=== PATIENT | male | born 1935 | race Caucasian/White ===

== ENCOUNTER 2022-06-15 11:13 | Inpatient (IN) | payer OTHER ==
[~2022-06-15] VITALS: Ht 175.3 cm; Wt 66.9 kg
[~2022-06-15 11:13] MED LIST: HYDACE5 PO
[2022-06-15 11:47] LABS: BASOPHILS ABSOLUTE AUTO 0.04 K/mm3 (0.00-0.23); BASOPHILS PERCENT AUTO 0 % (0-2); EOSINOPHILS ABSOLUTE AUTO 0.04 K/mm3 (0.00-0.68); EOSINOPHILS PERCENT AUTO 0 % (0-6); Hematocrit 44.4 % (37.0-53.0); IMMATURE GRAN ABSOLUTE AUTO 0.03 K/mm3 (0.00-0.10); IMMATURE GRAN PERCENT AUTO 0 % (0-1); LYMPHOCYTES ABSOLUTE AUTO 1.66 K/mm3 (0.84-5.20); LYMPHOCYTES PERCENT AUTO 15 % (21-46); MONOCYTES PERCENT AUTO 6 % (4-13); Mean Corpuscular HGB 30.9 pg (26.0-34.0); Mean Corpuscular HGB Conc 33.8 g/dL (31.5-36.5); Mean Corpuscular Volume 91 fL (80-100); Mean Platelet Volume 12.9 fL (9.1-12.4); NEUTROPHILS PERCENT AUTO 78 % (41-73); Platelet Count 153 K/mm3 (150-400); RDW Coefficient Variation 12.9 % (11.7-14.2); RDW Standard Deviation 43.5 fL (35.1-46.3); Red Blood Cell Count 4.86 M/mm3 (4.30-5.90); White Blood Cell Count 11.07 K/mm3 (4.00-11.30)
[2022-06-15 12:19] LABS: International Normalized Ratio 1.15
[2022-06-15 12:39] LABS: Thyroid Stimulating Hormone 1.27 uIU/mL (0.360-4.800)
[2022-06-15 13:04] LABS: Alanine Aminotransfer (ALT/SGP 31 U/L (12-78); Albumin, Blood 4.1 g/dL (3.4-5.0); Albumin/Globulin Ratio 1.1 (0.8-1.8); Alk Phos 80 U/L (50-136); Anion Gap 4 mmol/L (6-16); Aspartate Aminotrans (AST/SGOT 44 U/L (12-37); Bilirubin, Total 0.9 mg/dL (0.1-1.0); Blood Urea Nitrogen 23 mg/dL (8-24); Bun/Creatinine Ratio 19.8 (12.0-20.0); CO2, Blood 26 mmol/L (21-32); Calcium, Blood 8.9 mg/dL (8.5-10.1); Chloride, Blood 113 mmol/L (98-108); Creatinine, Blood 1.16 mg/dL (0.60-1.20); Ethanol (Alcohol), Blood, Med <3 mg/dL; Globulin, Blood 3.8 g/dL (2.2-4.0); Glomerular Filtration Rate 62 (60-); Glucose, Blood 106 mg/dL (70-99); Potassium, Blood 4.1 mmol/L (3.5-5.5); Sodium, Blood 143 mmol/L (136-145); Total Protein, Blood 7.9 g/dL (6.4-8.2)
--- NOTE | 2022-06-15 19:05 | NUR ---
LATE ENTRY/ER ADMIT 1715: RECEIVED REPORT FROM GEOTHERMAL INSTALLER 1740: RECEIVED PT FROM ER VIA [facility]. PLACED PT IN BED, MADE COMFORTABLE, ORIENTED FAMILY TO ROOM & UNIT ROUTINE. PT IS UNRESPONSIVE, WILL OPEN EYES WHEN NAME IS CALLED BUT DOES NOT RESPOND. IS YAWNING FREQUENTLY. APPEARS TO BE RESTING WITH EYES CLOSED, RESP EVEN & UNLABORED. DTR FROM [place] AT BEDSIDE.
[2022-06-16 06:22] LABS: Anion Gap 6 mmol/L (6-16); Blood Urea Nitrogen 20 mg/dL (8-24); CHOL/HDL RATIO 2.8; CO2, Blood 23 mmol/L (21-32); Calcium, Blood 8.3 mg/dL (8.5-10.1); Chloride, Blood 118 mmol/L (98-108); Cholesterol 134 mg/dL (50-200); Glucose, Blood 84 mg/dL (70-99); HDL Cholesterol 48 mg/dL (>39); LDL/HDL RATIO 1.4; Low Density Lipoprotein Chol 68 mg/dL (0-110); Potassium, Blood 3.9 mmol/L (3.5-5.5); Sodium, Blood 147 mmol/L (136-145); Triglycerides 90 mg/dL (30-160); Very Low Density Lipoprot Chol 18 mg/dL (6-32)
[2022-06-16 06:23] LABS: Bun/Creatinine Ratio 18.3 (12.0-20.0); Creatinine, Blood 1.09 mg/dL (0.60-1.20); Glomerular Filtration Rate 67 (60-)
--- NOTE | 2022-06-16 06:38 | NUR ---
SHIFT SUMMARY PT SLEEPING DURING BEDSIDE ROUNDING - PT REPORT PT HAS BEEN NON VERBAL SINCE ADMISSION - PT WOKE UP WHILE SON AND FAMILY WERE IN ROOM - PT HAVING PROBLEMS TRACKING AND FOLLOWING DIRECTION- PT REPEATED IS SENTENCES REPEATITLY- PT SET OFF BED ALARM AND STOOD AT BEDSIDE- PT STEADY ON FEET- PT UNABLE TO FOLLOW DIRECTION, ATTEMPTED TO HAVE PT URINATE IN URINAL- PT UNABLE TO FOLLOW DIRECTION- IV INFUSING WITHOUT PROBLEMS BED LOW POSITION, CALL LIGHT WITHIN REACH, BED ALARM IN PLACE
--- NOTE | 2022-06-16 12:02 | NUR ---
"Spiritual Care | Pt. request (Family Request) Pt. is awake and in bed. Family are present and welcome my visit. Pt. is known to this microbiology technician from [email or web address] and [employer]. Pt. displays evidence of difficulty processing thoughts and is favoring one side as his point of focus. Thought this microbiology technician is known to this Pt. Pt. jackson a difficult time identifying me. Rapport is established with the family who requested that this microbiology technician contact the Pts. spiritism. Family verbalized that they are looking at home hospice for Pt. treatment. Prayed with Pt. and family. Family verbalized gratitude for the spiritual care visit. Family verbalizes an openness to having visitors come see the Pt. as long as they don't stay long. This microbiology technician will contact the Pts. spiritism."
--- NOTE | 2022-06-16 16:04 | NUR ---
Spiritual Care Coordination Assisted Pts. Elder from gn[facility] to connect with Pt. Pt. displayed more active engagement, though still spoke with some word salad. Family expressed gratitude for the Communication and coordination.
--- NOTE | 2022-06-16 17:01 | NUR ---
PT IS ALERT NOT ABLE TO FOLLOW DIRECTIONS WELL ALTHOUGH SEEEMS TO HAVE IMPROVED SOME COMPARED TO THIS AM. PT MOVES ALL EXTREMITIES WELL. THIS AFTERNOON THE PT WAS UP WITH ASSIST TO THE BATHROOM WITH PERSISTANT DIRECTION. PT APPEARS TO BE BREATHING EASILY ON RA AT THIS TIME. THE PT HAD AN EEG AT THE BEDSIDE THIS AFTERNOON AND COOPERATED. THE PTS FAMILY IS AT THE BEDSIDE T/O THE DAY. SPEECH THERAPY WORKED WITH THE PT. CALL LIGHT IN REACH, BED ALARM ON
--- NOTE | 2022-06-16 22:05 | NUR ---
HOSPITALIST NOTIFICATION TELE RUN 10X V TACK. DIOR ORDERED AND MAG LABS. PATIENT ASYMPTOMATIC.
[2022-06-17 05:41] LABS: BASOPHILS ABSOLUTE AUTO 0.04 K/mm3 (0.00-0.23); BASOPHILS PERCENT AUTO 1 % (0-2); EOSINOPHILS PERCENT AUTO 1 % (0-6); Hematocrit 37.3 % (37.0-53.0); Hemoglobin 12.6 g/dL (13.5-17.5); IMMATURE GRAN ABSOLUTE AUTO 0.02 K/mm3 (0.00-0.10); IMMATURE GRAN PERCENT AUTO 0 % (0-1); LYMPHOCYTES ABSOLUTE AUTO 2.06 K/mm3 (0.84-5.20); LYMPHOCYTES PERCENT AUTO 24 % (21-46); MONOCYTES ABSOLUTE AUTO 0.74 K/mm3 (0.16-1.47); MONOCYTES PERCENT AUTO 9 % (4-13); Mean Corpuscular HGB 31.3 pg (26.0-34.0); Mean Corpuscular HGB Conc 33.8 g/dL (31.5-36.5); Mean Corpuscular Volume 93 fL (80-100); NEUTROPHILS ABSOLUTE AUTO 5.64 K/mm3 (1.96-9.15); NEUTROPHILS PERCENT AUTO 66 % (41-73); Platelet Count 122 K/mm3 (150-400); RDW Coefficient Variation 12.8 % (11.7-14.2); RDW Standard Deviation 43.4 fL (35.1-46.3); Red Blood Cell Count 4.03 M/mm3 (4.30-5.90)
--- NOTE | 2022-06-17 06:00 | NUR ---
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 He presented with mental confusion and right-sided weakness. His brain MRI reported findings consistent with subacute infarct involving the area of the anterior left frontal lobe, left temporal lobe, posterior left frontal and parietal lobes and left basal ganglia. [facility] Stroke Service was therefore contacted and recommendation for the patient to have EEG d/t increased risks for seizures. Confused and cooperative during shift. Episodes of confusion with multiple bed exits alarm triggers. Deficient communication and word-salad apparent. Right -sided neglect with ability to ambulate x1 staff assist. Am Labs drawn and results reviewed.
[2022-06-17 06:23] LABS: Bun/Creatinine Ratio 16.1 (12.0-20.0); Calcium, Blood 8.1 mg/dL (8.5-10.1); Creatinine, Blood 0.99 mg/dL (0.60-1.20); Potassium, Blood 3.8 mmol/L (3.5-5.5)
--- NOTE | 2022-06-17 14:44 | NUR ---
Spiritual Care Visit. Pt. is awake in bed and welcomes my visit. Family members are present. Pt. displays evidence of confusion and word salad. Pt. also displays some frustration when responding. Because of the Pts. condition the visit is kept brief. Prayed with Pt. DIL verbalized that the plan is to have Pt. transfer to [facility] on Tuesday, ANAND also verbalized gratitude for the spiritual care visit. Will remain available to Pt. and family.
--- NOTE | 2022-06-17 19:24 | NUR ---
SHIFT SUMMARY: PT A&O X2. HAS BEEN VERY PLEASANT AND COOPERATIVE WITH ALL CARE. IV WAS LEAKING WHEN WALKING INTO ROOM THIS AM. NEW IV PLACED IN LEFT WRIST. FAMILY IN ROOM THROUGHOUT WHOLE SHIFT. FAMILY TALKING SKILLED VS. HOSPICE CARE AT FACILITY. POSSIBLE D/C TOMORROW. PT CONTINUES TO HAVE WORD SALAD BUT APPEARS TO BE BETTER SINCE THIS AM. NO C/O PAIN OR N/V. CALL LIGHT IN REACH. BED IN LOWEST POSITION. REPORT GIVEN TO ONCOMING NURSE.
[2022-06-18 05:57] LABS: SARS-Cov-2 (COVID-19) PCR, MMC NEGATIVE (NEGATIVE)
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
--- NOTE | 2022-06-18 13:41 | NUR ---
PT TRANSFERRED TO ROOM 348 AT 1330. REPORT GIVEN TO AALIYAH CELESTE. FAMILY NOTIFIED. ALL BELONGINGS SENT WITH PT.
--- NOTE | 2022-06-18 19:46 | NUR ---
SHIFT SUMMARY: PT TRASNFERED FROM 326 TO 348 AFTER LUNCH. PT A&O X2, PLEASANT, COOPERATIVE, AND IMPULSIVE. PT FAMILY PRESENT DURING TRANSFER AND AT BEDSIDE THROUGHOUT THE SHIFT. PT REQUIRES ASSISTANCE WITH MEALS, SNACKS, AND ADL'S. PT HAS BED ALARM ARMED, HIGH FALL RISK. PT ON PUREE AND THIN LIQUIDS. PT CONTINENT OF URINE AND STOOL.PT IN BED WITH CALL LIGHT WITHIN REACH AND FAMILY AT BEDSIDE.
--- NOTE | 2022-06-19 06:42 | NUR ---
PT FORGETFUL, IMPULSIVE BUT REDIRECTABLE. TRANSFERS WITH UNSTEADY GAIT TO TOILET. BED ALARM ON, DOES NOT CALL APPROPRIATELY. VSS, CONTINENT OF BOWEL AND BLADDER, NO SIGNIFICANT CHANGES LAST NIGHT.
--- NOTE | 2022-06-19 09:00 | NUR ---
pt sitting up in bed with son at bedside, pt is a/oX2, cooperative with care, but needs a lot of direction, lungs are clear t/o, on r/a, resp even and unlabored, no cough noted, hrr, paced, no edema noted, ppp+2, cap refill <3sec, vs stable, afebrile, btx4, abd flat soft nontender, voids without diff, skin c/w/d, maew, pupils a bit sluggish, needs assist to eat, can feed self but puts hands in food if left alone, meds crushed in applesauce, speech following, call light in reach.
--- NOTE | 2022-06-19 18:13 | NUR ---
pt had an uneventful day, ambulating around the room and out in the chaves with his son, he is redirectable, no acute changes this shift. call light in reach.
--- NOTE | 2022-06-20 03:58 | NUR ---
PT WAS PLEASANT, COOPERATIVE WITH CARE WHILE FAMILY WAS HERE. PT HAS BEEN AOX1-2 WITH INAPPROPRIATE RESPONSES AND VERY CONFUSED THOUGHT PROCESS THROUGHOUT SHIFT. FAMILY LEFT AT ABOUT 2100. AFTER THIS POINT, PT WAS IMPULSIVELY OOB OFTEN, UNSTEADY ON FEET, EXCEEDINGLY DIFFICULT TO REDIRECT, AND INCREASINGLY AGITATED. BECAME COMBATIVE WITH STAFF WHEN ATTEMPTED TO GIVE ORAL PRN ZYPREXA. RECEIVED ORDER FOR AND ADMINISTERED ONE TIME DOSE OF IM ZYPREXA AFTER WHICH POINT PT HAS BEEN ABLE TO REST AND RELAX THROUGH REST OF SHIFT. CALL LIGHT LEFT WITHIN REACH.
--- NOTE | 2022-06-20 18:59 | NUR ---
SHIFT SUMMARY- PT IS ALERT. CONFUSED. WORDS USED WHEN TALKING DO NOT CORELATE WITH SITUATION. PT DOES NOT SEEM TO BE UPSET WITH STAFF OR FAMILY FOR NOT UNDERSTANDING HIM. CALM, PLEASANT, COOPERATIVE. PT FAMILY REMAINED WITH HIM MOST OF THE DAY. UP TO BATHROOM WITH 1 PERSON ASSIST. GAIT SOMEWHAT UNSTEADY. BED IS IN THE LOWEST POSITION WITH BED ALARM ON AND CALL LIGHT IN REACH
--- NOTE | 2022-06-21 03:49 | NUR ---
SHIFT UNREMARKABLE. PT TOOK 2100 MEDICATION WITHOUT DIFFICULTY WITH ASSISTANCE OF PRESENT FAMILY AND HAS SLEPT THROUGH MOST OF REMAINDER OF SHIFT. REMAINS VERY CONFUSED, ORIENTED EXCLUSVELY TO SELF. NOT ABLE TO CALL APPOPRIATELY. VERY DIFFICULT TO REORIENT. VERY [place]. THUS FAR COOPERATIVE WITH CARE. CALL LIGHT IS LEFT WITHIN REACH.
--- NOTE | 2022-06-21 16:09 | NUR ---
SHIFT SUMMARY PT EXTREMELY CONFUSED. PLEASANT IN ROOM. UNABLE TO FOLLOW VERBAL DIRECTION. CAN FOLLOW GESTURES WELL. SPEECH THERAPY IN TO SEE THE PT, FINGER FOODS RECCOMMENDED AND MEDS CRUSHED. PT HAVING DIFFICULTY REMEMBERING TO FEED HIMSELF. FED FOR LUNCHTIME. 1 LITER OF NS GIVEN THIS AM FOR HYPOTENSION. BP THIS AFTERNOON 100/68. PT AMBULATING IN ROOM WITH 1P ASSIST FOR SAFETY. NO OTHER ACUTE CHANGES IN ASSESSMENT AT THIS TIME. VS REVIEWED. PT UP IN CHAIR. CALL LIGHT IN REACH. ENCOURAGING PO INTAKE & FLUIDS.
--- NOTE | 2022-06-22 06:28 | NUR ---
PT SLEPT AFTER 2100 AND NIGHT MEDS GIVEN. AWOKE TO USE BATHROOM, DID NOT CALL, BED ALARM ON. PT HAD LOOSE STOOL.
--- NOTE | 2022-06-22 08:51 | NUR ---
TACHYCARDIA PT HR THIS AM IN THE 130-[address] LAURENT NOTIFIED. TELE ORDER PLACED. PT UNABLE TO ANSWER IF HE IS HAVING CHEST PAIN. OTHER VITALS REVIEWED.
--- NOTE | 2022-06-22 09:31 | NUR ---
PHYSICIAN CONTACT. TACHYCARDIA PT UP IN HALLWAY, REFUSING TO GO BACK TO HIS ROOM. TELE IN PLACE. RUNNING SINUS WITH A RATE IN THE 160S PER DIRECTOR LOAN. DR. LAURENT PT CURRENTLY STANDING LOOKING OUT THE WINDOW, UNWILLING TO COME BACK TO HIS ROOM.
--- NOTE | 2022-06-22 11:31 | NUR ---
AFIB eyesFinder NOTIFIED THIS RN THAT PT IS NOW IN AFIB WITH A RATE IN THE 160S. DR. LAURENT NOTIFIED. EKG ORDERED.
--- NOTE | 2022-06-22 16:46 | NUR ---
SHIFT SUMMARY PT VERY CONFUSED T/O SHIFT. PT DID GET MEDICATED ONCE WITH ZYPREXA WHEN HE WAS AGITATED AND DID NOT WANT TO SIT DOWN OR RETURN TO HIS ROOM WHEN IN THE HALLWAY. SECURITY WAS CALLED TO HELP ESCORT PT BACK TO HIS ROOM. PT HAS BEEN COOPERATIVE AND PLEASANT SINCE. TACHYCARDIC THIS AM, TELE ORDERED AND APPLIED. PT ORIGINIALLY RUNNING SINUS TACH IN TE 150-160S. LATER IN THE DAY PT CONVERTED TO AFIB WITH A RATE FROM 70-120 THIS AFTERNOON. BP LOW WITH AFTERNOON VITALS AT 88/67, LIKELY RELATED TO THE FACT THAT THE PT HAS HARDLY DRANK ANYTHING TODAY. DR. LAURENT NOTIFIED. 1L NS ORDERED AND GIVEN. BP INCREASED TO 139/95. PT CURRENTLY UP IN CHAIR IN HIS ROOM. AMBULATING TO THE BATHROOM WHEN HE HAS TO VOID. ONE EPISODE OF LOOSE STOOL THIS SHIFT IN THE TOILET. NO OTHER ACUTE CHANGES IN ASSESSMENT AT THIS TIME. CALL LIGHT IN REACH. VS REVIEWED.
--- NOTE | 2022-06-23 05:56 | NUR ---
PT SLEPT MOST OF NIGHT. PLEASANTLY CONFUSED, UNABLE TO REDIRECT AT TIMES, VERY HARD OF HEARING
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
--- NOTE | 2022-06-23 18:24 | NUR ---
I have reviewed nursing service administrator documentation & agree with assessment.
--- NOTE | 2022-06-24 05:27 | NUR ---
PT FAMILY IN ROOM UNTIL 2100, PT THEN IN BED AND SLEPT T/O NIGHT
--- NOTE | 2022-06-24 13:40 | NUR ---
Spiritual Care Visit. Pt. is awake and sitting in a chair. Pt. is pleasantly confused. While Pt. has known this deli worker for 12 yrs, Pt. displayed evidence of being fixed on a problem that he was trying to solve. Pt. displayed word salad, but kept referring to this one singular problem. Listened with great focus, empathy and a pastoral presence. Prayed with Pt. Pt. verbalized gratitude for the spiritual care visit and shook this deli worker's hand. We continue to remain avilable to Pt. and family.
--- NOTE | 2022-06-24 15:19 | NUR ---
SHIFT SUMMARY PT AWAKE AT START OF SHIFT, RESTING QUIETLY WATCHING TV. PT IS TALKATIVE, BUT DOES NOT ANS QUESTIONS APPROPIATELY. PT UNABLE TO FOLLOW DIRECTIONS WELL. PT ABLE TO WALK IN HALLS WITH THERAPY, BUT DIFFICULT TO DIRECT. PT ABLE TO BE INDEPENDENT IN RM AND LOOK OUT WINDOW. NO C/O PAIN. NO NEEDS NOTED. DIFFICULT TO COMMUNICATE WITH PT. CALL LT IN REACH. CHAIR AND BED ALARM'S USED FOR SAFETY.
--- NOTE | 2022-06-24 15:35 | NUR ---
PT CHART NOTES REVIEWED, ATTEMPTED TO MAKE A VISIT. RN REPORTS PT IS OFF THE UNIT HAVING A PREMACATH PLACED.
--- NOTE | 2022-06-25 15:27 | NUR ---
CASE CONF WITH MELVI FISCHER, PT DOING OK TODAY AND HAS BEEN TAKING HIS MEDICATIONS TODAY. UPDATED HER STILL LOOKING FOR PLACEMENT IN [place] CLOSER TO FAMILY. PT SON HAS BEEN WORKING WITH AND [facility] TO GET PAPERWORK COMPLETED. CASE CONF WITH [employer], CONFIRMED ABOVE DC PLAN AND STILL WORKING ON FINDING A FACILTY. PT STILL HAVE IM PRN ZYPREXA ORDER, WILL CONSULT WITH DR LAURENT ABOUT GETTING THIS ORDER [facility] NEEDED IT FOR THE LASTR COUPLE OF DAYS AND PER CM, SOME FACILITIES WILL NOT ACCEPT PTS WITH IM ORDERS. PT CURRENTLY HAS A SCHEDULED PO ZYPREXA ORDER AND A PRN ODT ZYPREXA ORDER.
--- NOTE | 2022-06-25 16:43 | NUR ---
SHIFT SUMMARY PT AWAKE AT START OF SHIFT, SITTING UP TO EOB. PT SOON WANTNG TO GET UP AND MOVE AROUND. PT UP INDEPENDENTLY IN AND AROUND RM. ANGOON, BUT PLEASANT. PT OUT FOR A WALK IN HALLS WITH MANAGER CALL THIS AFTERNOON AND THEN INTO THE SHOWER. PT IS VERY DIFFICULT TO DIRECT OR COMMUNICATE WITH. PT DOES NOT UNDERSTAND ANY INSTRUCTIONS OR ANS ANY QUESTIONS APPROPRIATELY. NO C/O PAIN. NO S/SX OF DISTRESS NOTED. CARE MANAGERS STILL WORKING ON PLACEMENT IN [facility] WHERE FAMILY LIVES. CALL LT IN REACH.
--- NOTE | 2022-06-26 19:46 | NUR ---
SUMM- PT A/O TO SELF, INDEPENDANT IN ROOM AND STEADY ON FEET. TOLERATING FOOD AND FLUID. VOIDING IN BATHROOM. IN TO VISIT THIS AFTERNOON, AMBULATED IN PENG WAY. 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 AWAITING ASSISTED LIVING IN [place]. REPORT TO DARBY FISCHER
--- NOTE | 2022-06-27 04:11 | NUR ---
SHIFT SUMMERY, PT RESTING IN BED AT THIS TIME AND HAS APPEARED TO BE SLEEPING ALL OF THE NIGHT. PT HAD FAMILY HERE VISITING FOR A WHILE BEFORE BED TIME. PT TOOK MEDICATIONS WITH OUT DIFFICULTY IN APPLESAUSE. CALL LIGHT IN REACH.
--- NOTE | 2022-06-27 18:32 | NUR ---
SUMMARY- PT A/O TO SELF ONLY. STEADY ON FEET AND INDEPENDANT IN ROOM. ASSISTED WITH SHOWER TODAY. SITS UP IN CHAIR FOR MEALS AND FEEDS SELF. PLEASANTLY CONFUSED BUT FOLLOWS SOME SIMPLE COMMANDS, UNABLE TO INTERPRET COMMUNITATION AT TIMES AND HAS EXPRESSIVE APHASIA. PLAN FOR PT TO GO TO [place] WITH FAMILY ONCE RESIDENCE SET IN PLACE. WILL REPORT TO DARBY FISCHER.
--- NOTE | 2022-06-28 05:16 | NUR ---
SHIFT SUMMERY. PT RESTING IN BED, PT APPEARD TO SLEEP ALL NIGHT. PT APPEARS TO BE COMFORTABLE AND PT ABLE TO TURN SELF IN BED. PT ALSO ABLE TO AMBULATE SAFELY AND GOES INTO BR TO VOID. PT IS STILL CONFUSED. PT HAVING BOWEL MOVEMENTS IN TOLET BUT VOIDING IN GARBAGE CAN. CALL LIGHT IN REACH.
--- NOTE | 2022-06-28 09:08 | NUR ---
SITTING AT THE DEGE OF BED EATING BREAKFAST INTERACTING AND TALKING, WORD SALAD, EXPRESSIVE AND RECEPTIVE APHASIA, AMBULATES IN THE ROOM, STEADY GAIT, DENIES PAIN
--- NOTE | 2022-06-28 16:57 | NUR ---
WORD SALAD, PATIENT HAS A HARD TIME MAKING NEEDS KNOWN, INDEPENDENT IN ROOM, CALL LIGHT WITH IN REACH, NO ACUTE CHANGES
--- NOTE | 2022-06-28 21:41 | NUR ---
FAMILY IN TO VISIT EARLIER. PT TOOK MEDS IN APPLESAUCE. CALL LIGHT IN REACH. WILL CONTINUE TO MONITOR
--- NOTE | 2022-06-29 03:21 | NUR ---
RESIDENT INSPECTOR SUMMARY VSS. HAD VISIT FROM FAMILY AT SHIFT COMMENCE. VISIT SEEMED TO GO WELL. PT HAVING DIFFICULTIES HEARING AND VOICED SOME DIFICULTIES UNDERSTANDING VERBAL CUES BUT OVERALL COMPLIANT WITH SAFETY ISSUES. MEDICATED WITH ZYPREXA AND DESERYL AT HS AND HAD BEEN RESTING QUIETLY WITH FEW INTERRUPTIONS. SEE MAR FOR DETAILS WHEN MEDICATED FURTHER FOR AGITATION. CALL LIGHT IN REACH. WILL CONTINUE TO MONITOR
--- NOTE | 2022-06-29 11:32 | NUR ---
Spiritual Care Encounter in hallway Pt. is walking the hallway outside of his room, and apparently recognized this chaplains face. Pt. displays significanct confusion as while this hog operator is visually familiar, in his mind he believes I am someone else. This hog operator has known this Pt. for 12 years in the community. Attempts to encourage the Pt. only seemed to polarize him. With encouraging words and a calming presence attempts to comfort the Pt. seemed to have little affect. Verbalized that I would come and see him again. Though not physically agitated Pt. displayed evidence of not being comforted by the visit.
--- NOTE | 2022-06-29 18:07 | NUR ---
SHIFT SUMMARY NO ACUTE CHANGES DURING SHIFT. PT ALERT TO SELF, STILL CONFUSED. PT INDEPENDENT IN PENG/ROOM. NO IV IN PLACE. PT PENDING PLACEMENT AT FACILITY. NO C/O PAIN. WILL CONTINUE TO MONITOR. CALL LIGHT WITHIN REACH.
--- NOTE | 2022-06-30 03:29 | NUR ---
TELECOMMUNICATION TOWER TECHNICIAN SUMMARY VSS. SON VISITED EARLIER IN THE SHIFT. NOTED SOME PACING DURING AND AFTER VISIT. TOLERATED HS MEDS WELL. VERBAL RESPONSE CONTINUES TO BE MUMBLED AND APPARENT DIFFICULTIES IN UNDERSTANDING QUESTIONS. INTERMITTENT LOUDER TALKING AND REPEATING SAID QUESTIONS SEEMED TO HELP. HAS BEEN RESTING QUIETLY WITH EFW INTEERRUPTIONS. ON CAMERA AND CALL LIGHT IN REACH FOR SAFETY. WILL CONTINUE TO MONITOR
--- NOTE | 2022-06-30 16:57 | NUR ---
PT HAS BEEN DOING OKAY AOX1, BUT HAS NOT BEEN TO ANXIOUS TODAY. WORKED WELL WITH OT. PT WAS STARTING TO PACE PRIOR TO DINNER AND WAS TREATED PER EMAR. WILL CONTINUE TO MONITOR.
--- NOTE | 2022-07-01 16:24 | NUR ---
DR. MADRID AT BEDSIDE.
--- NOTE | 2022-07-01 18:02 | NUR ---
SHIFT SUMMARY: NO ACUTE EVENTS. STILL WITH APHASIA AND CONFUSION, NOT EASILY REDIRECTABLE, HAS TROUBLE FOLLOWING DIRECTIONS, VERY [place]. HAD LARGE BM TODAY. EVALUATED BY DR. MADRID, GU[employer]IAN[employer] RECOMMENDED, LETTER IN CHART. WORKED WITH OT. HAD VISIT FROM LONG TIME FRIEND, STAYED MOST OF THE AFTERNOON. AMBULATING INDEPENDENTLY IN ROOM, NEEDS SUPERVISION WHEN WALKING IN HALLWAY TO PREVENT HIM GOING IN TO OTHER PT'S ROOMS. BECAME SLIGHTLY AGITATED THIS AFTERNOON, GAVE ZYPREXA WITH GOOD EFFECT. TOLERATING PO INTAKE. DENIED PAIN.
--- NOTE | 2022-07-02 17:16 | NUR ---
SHIFT SUMMARY- PT AAOX1 TO SELF. PT IS PLEASANTLY CONFUSED. CALM AND COOPERATIVE. NO ACUTE EVENTS THIS SHIFT.
--- NOTE | 2022-07-03 04:38 | NUR ---
Summary: No acute events overnight. Patient Aox1 to self pleasantly confused. Patient did recognize family that came to visit him before bed. Patient pleasant with all care. Easily verbally redirected into his room. VSS.
--- NOTE | 2022-07-03 09:00 | NUR ---
PT PLEASANT COOP A/O X1. VERY [place]. APPEARS SOME ANSWERS OFF R/T HEARING LOSS. DENIES PAIN, H/R REG, NO MURMUR NOTED. NO TELE. LUNGS CLEAR RESP EASY, UNLABORED. ON R.A. BT X4 LAST BM LISTED 2 DAYS. VOIDS INDEPENDANT IN ROOM. BED IN LOW POSITION, CALL LITE IN REACH. CALL APPROP
--- NOTE | 2022-07-03 18:06 | NUR ---
PT UP ABOUT ROOM MOST OF DAY. OFTEN I FIND HIM IN BATHROOM LOOKING AT MIRROR. WE REMOVED LOTION AND SOAPS FROM BATHROOM FOR SAFETY. PENDING PLACEMENT. CONTINUES TO BE QUITE CONFUSED. BED IN LOW POSITION, CALL LITE IN REACH. INDEPENDANT IN ROOM.
--- NOTE | 2022-07-04 04:13 | NUR ---
PT NOW RESTING IN BED, PT SPENT A VERY LONG TIME LOOKING IN MIRROR IN BR, AND SEEMED TO BE BACK IN BR LOOKING IN MIRRIOR EVERY TIME HE WAS CHECKED ON.PT TOOK HIS MEDS WITH OUT DIFFICULTY. CALL LIGHT IN REACH. PT SEEMS TO BE SLEEPING WELL AND SEEM COMFORTABLE.
[2022-07-04 08:20] LABS: BASOPHILS ABSOLUTE AUTO 0.05 K/mm3 (0.00-0.23); BASOPHILS PERCENT AUTO 1 % (0-2); EOSINOPHILS ABSOLUTE AUTO 0.09 K/mm3 (0.00-0.68); EOSINOPHILS PERCENT AUTO 1 % (0-6); Hematocrit 40.4 % (37.0-53.0); Hemoglobin 13.6 g/dL (13.5-17.5); IMMATURE GRAN ABSOLUTE AUTO 0.01 K/mm3 (0.00-0.10); IMMATURE GRAN PERCENT AUTO 0 % (0-1); LYMPHOCYTES ABSOLUTE AUTO 2.15 K/mm3 (0.84-5.20); LYMPHOCYTES PERCENT AUTO 26 % (21-46); MONOCYTES ABSOLUTE AUTO 0.59 K/mm3 (0.16-1.47); MONOCYTES PERCENT AUTO 7 % (4-13); Mean Corpuscular HGB 31.3 pg (26.0-34.0); Mean Corpuscular HGB Conc 33.7 g/dL (31.5-36.5); Mean Corpuscular Volume 93 fL (80-100); Mean Platelet Volume 12.8 fL (9.1-12.4); NEUTROPHILS ABSOLUTE AUTO 5.48 K/mm3 (1.96-9.15); NEUTROPHILS PERCENT AUTO 66 % (41-73); Platelet Count 182 K/mm3 (150-400); RDW Coefficient Variation 12.7 % (11.7-14.2); RDW Standard Deviation 43.8 fL (35.1-46.3); Red Blood Cell Count 4.34 M/mm3 (4.30-5.90); White Blood Cell Count 8.37 K/mm3 (4.00-11.30)
[2022-07-04 08:35] LABS: Bun/Creatinine Ratio 26.7 (12.0-20.0); Calcium, Blood 8.8 mg/dL (8.5-10.1); Creatinine, Blood 1.16 mg/dL (0.60-1.20); Potassium, Blood 4.2 mmol/L (3.5-5.5)
--- NOTE | 2022-07-04 10:54 | NUR ---
PT PLEASANT COOP TODAY ALERT TO SELF. STANDING AT BATHROOM OFTEN JUST STARING INTO MIRROR. DENIES PAIN. H/R REG, NO MURMUR NOTED. NO TLE. LUNGS CLEAR, RESP EASY, UNLABORED. ON R.A. BT X4 LAST BM NOT KNOWN BY PT. VOIDS INDEPENDANT IN BATHROOM. BED IN LOW POSITION, CALL LITE IN REACH, WANDERS ROOM.
--- NOTE | 2022-07-04 18:31 | NUR ---
PT TOOK SHOWER TODAY. HAS BEEN FOCUSING ON MIRROR A LOT TODAY. VSS. LUNGS CLEAR, RESP EASY, UNLABORED. ON R/A. CONTINUES TO BE WALK ABOUT ROOM INDEPENDANTLY. HAS BEEN CONFUSED, BUT PLEASANT TODAY. BED IN LOW POSITION, CALL LITE IN REACH,.
--- NOTE | 2022-07-05 17:34 | NUR ---
SHIFT SUMMARY PT ALERT TO SELF AND PLEASANTLY CONFUSED. NO ACUTE CHANGES. PT SLEPT MOST OF MORNING. PT WONDERED IN ROOM DURING AFTERNOON AND EASILY REDIRECTABLE. FRIENDS AT BEDSIDE FOR A COUPLE HOURS. BED IN LOWEST POSITION.
--- NOTE | 2022-07-06 17:20 | NUR ---
SHIFT SUMMARY PT A&OX1-2 AND IN PLEASENT MOOD T/O SHIFT. PLEASENTLY CONFUSED T/O SHIFT. TACHICARDIA REPORTED TO DR. AGUIRREOPROLEDGARD INITIATED, PLAN TO REASSESS. CALL LIGHT W/ IN REACH. IND IN ROOM. VERY [place]. TOLERATING PO INTAKE WELL, BM THIS SHIFT.
--- NOTE | 2022-07-07 16:43 | NUR ---
Spiritual Care Visit. Pt. is awake but sitting in the restrrom when he welcomes my visit. Pt. is pleasant, and recognizes this charging car operator's face, but cannot communicate ackowledgment. Attempt to facilitate a conversation based on Pts. word salad. Pt. displays evidence of physical health but his confusion is significant. Pt. welcomed prayer. Prayed with Pt. Pt. verbalized gratitude for the spiritual care visit.
--- NOTE | 2022-07-07 18:38 | NUR ---
SHIFT SUMMARY PTN UP AND ABOUT IN ROOM, ROAMING FROM BATHROOM TO MAIN ROOM, SITTING DOWN SOME. PTN CONFUSED, BUT DOES NO COME OUT OF ROOM AND REMAINS CONTENT THIS SHIFT. PLACEMENT PLANNED FOR TOMORROW. CONTINUE TO MONITOR.
--- NOTE | 2022-07-08 04:57 | NUR ---
SHIFT SUMMARY ADMITTED FOR ACUTE CVA. DNR CODE. PLAN IS FOR PLACEMENT LTC IN [facility] PT. WAS LIVING ALONE. FINGER FOOD DIET- W/SUPERVISION ONLY. RX CRUSHED W/SAUCE. ON RA. A&O X SELF. IMPULSIVE, CONFUSED. WANDERS INDEPENDENTLY IN ROOM. REDIRECTABLE. NO IV ACCESS. PHYSICAL/OT/PT ARE ASSISTING WITH CARE. AGITATION W/INCREASED STIMULI REPORTED. CONTINENT
--- NOTE | 2022-07-08 08:00 | NUR ---
Pt sitting on the side of the bed eating, profoundly red devil, has word salad and trouble following directions, maybe due to hearing deficit, he is confused but calm, lungs clear t/o, resp even and unlabored, no cough noted, on r/a, hrr, no edema noted, ppp+1, cap refill <3sec vs stable, afebrile, btx4, abd flat soft nontender, voids without diff, skin c/w/d, maew, gets up indep, takes po meds crushed in applesauce, call light in reach.
[2022-07-08] MEDS ORDERED: OLAN5 PO (12:45)
[2022-07-08] MEDS ORDERED: ATOR80 PO (12:45)
[2022-07-08] MEDS ORDERED: ASPI81CH PO (12:45)
[2022-07-08] MEDS ORDERED: MIRALAX17 GM PO (12:45)
[2022-07-08] MEDS ORDERED: TRAZ50 PO (12:46)
--- NOTE | 2022-07-08 18:29 | NUR ---
pt has been up to chair most of the day, visitor in room, no acute changes this shift has been discharged to facility [place], may leave tomorrow. call light in reach.
--- NOTE | 2022-07-09 04:42 | NUR ---
SHIFT SUMMARY ADMITTED FOR ACUTE CVA - ISCHEMIC. PLAN IS FOR PLACEMENT. HE IS A [facility]. CRUSH RX W/SAUCE. FINGER FOOD DIET - SUPERVISED. INDEPENDENT IN ROOM. ON RA. HE FELL EARLIER THIS EVENING, HOSPITALIST CALLED. NO INJURIES NOTED OR REPORTED. VITALS WNL. NEW ONSET AFIB. PHYSICAL/OT/ST ARE ASSISTING.
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
== END 2022-07-09 10:27 | disposition home or self-care (01) | DRG 65 ==
LOC: ER 11:13 → MEDS 14:08
PROVIDERS: Emergency Medicine; Family Medicine; Internal Medicine; Nurse Practitioner Acute Care; ADMIT Internal Medicine
DX: I63.512 Cerebral infarction due to unspecified occlusion or stenosis of left middle cerebral artery (principal); F02.811 Dementia in other diseases classified elsewhere, unspecified severity, with agitation; Z66 Do not resuscitate; G40.309 Generalized idiopathic epilepsy and epileptic syndromes, not intractable, without status epilepticus; I48.0 Paroxysmal atrial fibrillation; R47.01 Aphasia; Z20.822 Contact with and (suspected) exposure to COVID-19; R77.8 Other specified abnormalities of plasma proteins; Z78.1 Physical restraint status
CPT/HCPCS: 36415; 70450; 70496; 70498; 70551; 80048; 80053; 80061; 82140; 82607; 82746; 83036; 83735; 84443; 84484; 85025; 85610; 85730; 92507; 92523; 92526; 92610; 93005; 93010; 93306; 95819; 97110; 97116; 97129; 97162; 97165; 97166; 97530; 97535; 99285-25; A9270; G0480; J1650; J1885; J1953; J7030; J7042; Q9967; U0004